=== PATIENT | female | born 1980 | race Caucasian/White ===

== ENCOUNTER 2019-08-08 10:54 | Inpatient (IN) | payer BC ==
[~2019-08-08] VITALS: Ht 157.6 cm; Wt 76.8 kg
[2019-08-20] VITALS (19 sets, daily range): BP systolic 95–124; BP diastolic 45–89; PULSE 70–106; TEMP 97.8–98.2
[2019-08-20] MEDS ORDERED: CONCEPT DHA1 CAP PO (08:59)
--- NOTE | 2019-08-20 09:18 | NUR ---
Patient ambulatory to unit accompanied by spouse for scheduled repeat section delivery. Patient oriented to room and call light. Clean gown on and resting in bed. FHR and contraction monitors placed and explained. Patient denies any leaking of fluid, vaginal bleeding and states baby is active. Consents signed. Assessment completed. 0900: IV started in left hand and labs collected from IV site and sent to lab. LR infusing. Letty Keen RN in room and report given.
[2019-08-20 09:20] LABS: BASO % 0.3 % (0.0-2.0); EOS # 0.1 (0.0-0.7); EOS % 0.6 % (0-4.0); GRAN # 7.5 (1.4-6.5); GRAN % 72.5 % (42.2-75.2); HEMATOCRIT 36.1 % (37.0-47.0); HEMOGLOBIN 11.6 g/dl (12.5-16.0); LYMPH # 1.8 (1.2-3.4); LYMPH % 17.4 % (20.0-51.0); MEAN CELL VOLUME 94 fl (80.0-100.0); MEAN CORPUSCULAR HEMOGLOBIN 30 pg (27.0-31.0); MEAN CORPUSCULAR HGB CONC 32 g/dl (33.0-37.0); MONO # 0.8 (0.1-0.6); PLATELET COUNT 236 K/mm3 (130-400); RED BLOOD COUNT 3.86 M/mm3 (4.10-5.30); REDCELL DISTRIBUTION WIDTH-CV 14.2 % (11.5-14.5)
[2019-08-21 01:00] VITALS: BP 108/56; PULSE 75; TEMP 97.8
[2019-08-21 07:30] VITALS: BP 102/62; PULSE 80; TEMP 98
--- NOTE | 2019-08-21 09:53 | NUR ---
Initial visit; Parents thanked Medical Billing Representative for offering congratulations and God's blessings for the of their son. Medical Billing Representative thanked family for choosing [facility].
[2019-08-21 15:00] VITALS: BP 123/69; PULSE 79; TEMP 97.7
[2019-08-21 19:35] VITALS: BP 113/67; PULSE 77; TEMP 97.5
[2019-08-22 08:15] VITALS: BP 130/60; PULSE 83; TEMP 97.9
[2019-08-22] MEDS ORDERED: IBU800 M1 PO (08:15)
[2019-08-22] MEDS ORDERED: PERCOCET 325 MG1 TA2 PO (08:15)
[2019-08-22 16:50] VITALS: BP 134/65; PULSE 78; TEMP 97.4
[2019-08-22 21:00] VITALS: BP 119/68; PULSE 80; TEMP 98.3
[2019-08-23 07:46] VITALS: BP 134/72; PULSE 84; TEMP 97.7
--- NOTE | 2019-08-23 10:20 | NUR ---
Patient given discharge instructions. Denies questions, leaves ambulatory with infant accompanied by John Escoto RN.
== END 2019-08-23 10:20 | disposition home or self-care (01) | DRG 788 ==
LOC: LDR 08-20 07:03 → OB 08-20 08:30 → LDR 08-20 10:53 → OB 08-23 10:20
PROVIDERS: ADMIT Student in an Organized Health Care Education/Training Program
PROC: 10D00Z1 Extraction of Products of Conception, Low, Open Approach (ICD-10-PCS; principal; 2019-08-20)
DX: O34.211 Maternal care for low transverse scar from previous cesarean delivery (principal); O99.02 Anemia complicating childbirth; O34.13 Maternal care for benign tumor of corpus uteri, third trimester; Z3A.40 40 weeks gestation of pregnancy; Z37.0 Single live birth
CPT/HCPCS: J0690; J1885; J2270; J2370; J2405; J2590; J7120

== ENCOUNTER → 2024-03-11 | Outpatient (CLI) | payer BC ==
[~2024-03-11] MED LIST: CONCEPT DHA1 CAP PO; IBU800 M1 PO; PERCOCET 325 MG1 TA2 PO
== END ==
LOC: MC.RAD 08:45
DX: Z12.31 Encounter for screening mammogram for malignant neoplasm of breast (principal)